=== PATIENT | female | born 1990 | race African-American/Black ===

== ENCOUNTER 2024-09-22 21:32 | Emergency (ER) | payer SELFPAY ==
[~2024-09-22] VITALS: Ht 162.6 cm; Wt 120.7 kg
[2024-09-22 21:34] VITALS: TEMP 98.4
[2024-09-22] MEDS: METHYLPREDNISOLONE SOD SUCC 125 MG/2ML VIAL IV STA (21:57)
[2024-09-22] MEDS: KETOROLAC TROMETHAMINE 30 MG/ML VIAL IV STA (22:14)
[2024-09-22 22:15] LABS: BASOPHILS % 0.3 % (0.0-1.0); EOSINOPHILS # (AUTO) 0.3 (0.0-0.4); EOSINOPHILS % 2.1 % (0.0-6.0); HEMATOCRIT 33.7 % (34.2-44.1); HEMOGLOBIN 9.7 g/dL (12.0-16.0); LYMPHOCYTES # (AUTO) 2.5 (1.0-3.2); LYMPHOCYTES % 21.2 % (18.0-39.1); MEAN CORPUSCULAR HEMOGLOBIN 21.7 pg (28-32); MEAN CORPUSCULAR HGB CONC 28.8 g/dL (31-35); MEAN CORPUSCULAR VOLUME 75.4 fL (81-99); MONOCYTES # (AUTO) 0.7 (0.2-0.8); MONOCYTES % 6.3 % (4.4-11.3); NEUTROPHILS # (AUTO) 8.2 (2.1-6.9); NEUTROPHILS % 69.6 % (38.7-80.0); PLATELET COUNT 450 x10e3/uL (140-360); RED BLOOD COUNT 4.47 x10e6/uL (3.6-5.1); RED CELL DISTRIBUTION WIDTH 16.5 % (11.7-14.4); WHITE BLOOD COUNT 11.79 x10e3/uL (4.8-10.8)
[2024-09-22 22:28] LABS: ALBUMIN 2.9 g/dL (3.5-5.0); ALBUMIN/GLOBULIN RATIO 0.6 (0.8-2.0); ALKALINE PHOSPHATASE 140 IU/L (40-150); BILIRUBIN,TOTAL 0.1 mg/dL (0.2-1.2); BLOOD UREA NITROGEN 7 mg/dL (7-26); BUN/CREATININE RATIO 10 (6-25); CALCIUM 11.3 mg/dL (8.4-10.2); CARBON DIOXIDE 19 mmol/L (22-29); CHLORIDE 113 mmol/L (98-107); CREATININE, SERUM 0.68 mg/dL (0.57-1.11); EST GLOMERULAR FILTRATION RATE 117 ML/MIN (>=60); GLUCOSE 97 mg/dL (74-118); SODIUM 139 mmol/L (136-145); TOTAL PROTEIN 7.5 g/dL (6.5-8.1)
[2024-09-22 22:36] LABS: ALANINE AMINOTRANSFERASE < 6 IU/L (0-55)
[2024-09-23 00:20] VITALS: PULSE 80; RESP 20
[2024-09-23] MEDS ORDERED: PREDNISONE20 MG PO (01:15)
[2024-09-23] MEDS ORDERED: KETOROLAC TROME10 MG PO (01:16)
[2024-09-23 01:37] VITALS: BP 132/74; PULSE 78; RESP 18; O2SAT 97
[2024-09-23] MEDS: KETOROLAC TROMETHAMINE 30 MG/ML VIAL IV STA (01:50)
[2024-09-23 03:36] LABS: HYPOCHROMASIA MODERATE
[2024-09-23 03:37] LABS: ANISOCYTOSIS MODERATE; ELLIPTOCYTE, RBC SLIGHT; MICROCYTOSIS MODERATE; POIKILOCYTOSIS SLIGHT; STOMATOCYTES MODERATE
[2024-09-23 03:38] LABS: PLATELET ESTIMATE ADEQUATE; PLATELET MORPHOLOGY COMMENT NORMAL; RBC MORPHOLOGY COMMENT ABNORMAL
== END 2024-09-23 02:00 | disposition home or self-care (01) ==
LOC: EDBD 21:41 → ER 21:41
DX: M25.562 Pain in left knee (principal); M25.561 Pain in right knee; M25.552 Pain in left hip; M25.551 Pain in right hip; M06.9 Rheumatoid arthritis, unspecified; E66.9 Obesity, unspecified; F17.210 Nicotine dependence, cigarettes, uncomplicated
CPT/HCPCS: 36415; 73700 ×2; 80053; 84702; 85025; 99285; J1885; J2919

== ENCOUNTER 2024-10-15 18:51 | Emergency (ER) | payer MEDICAID ==
[~2024-10-15] VITALS: Ht 162.6 cm; Wt 120.7 kg
[~2024-10-15 18:51] MED LIST: KETOROLAC TROME10 MG PO; PREDNISONE20 MG PO
[2024-10-15 18:55] VITALS: PULSE 74; RESP 18; TEMP 99.1; O2SAT 98
[2024-10-15] MEDS: KETOROLAC TROMETHAMINE 60 MG/2 ML VIAL IM ONE (19:46)
[2024-10-15] MEDS ORDERED: MEDROL4 M2 PO (19:47)
[2024-10-15] MEDS: METHYLPREDNISOLONE SOD SUCC 125 MG/2ML VIAL IM ONE (19:52)
== END 2024-10-15 21:05 | disposition home or self-care (01) ==
LOC: ER 19:34
DX: M17.0 Bilateral primary osteoarthritis of knee (principal); M25.562 Pain in left knee; M25.561 Pain in right knee
CPT/HCPCS: 99283; J1885; J2919

== ENCOUNTER 2024-11-02 12:29 | Emergency (ER) | payer BC, MEDICARE ==
[~2024-11-02] VITALS: Ht 162.6 cm; Wt 120.7 kg
[~2024-11-02 12:29] MED LIST changes: +MEDROL4 M2 PO
[2024-11-02 13:05] VITALS: PULSE 78; RESP 20; TEMP 98.9
[2024-11-02 14:52] LABS: LEUKOCYTE ESTERASE ,URINE TRACE (NEGATIVE); PREGNANCY TEST, URINE NEGATIVE (NEGATIVE); PROTEIN,URINE DIPSTICK NEGATIVE (NEGATIVE); URINE UROBILINOGEN 0.2 mg/dL (0.2 - 1)
[2024-11-02 15:02] LABS: EPITHELIAL CELLS,URINE RARE /LPF; WBC,URINE (MAN) 0-5 /HPF (0-5)
[2024-11-02] MEDS: SODIUM CHLORIDE 0.9% 1000ML 1,000 ML IV STA (16:17)
[2024-11-02] MEDS: ONDANSETRON HCL INJ 2MG/ML 2ML 2 MG/ML VIAL IV STA (16:17)
[2024-11-02] MEDS: KETOROLAC TROMETHAMINE 30 MG/ML VIAL IV STA (16:21)
[2024-11-02 16:37] LABS: BASOPHILS % 0.2 % (0.0-1.0); EOSINOPHILS % 1.7 % (0.0-6.0); LYMPHOCYTES % 21.1 % (18.0-39.1); MONOCYTES % 6.1 % (4.4-11.3); NEUTROPHILS % 70.8 % (38.7-80.0); RED CELL DISTRIBUTION WIDTH 18.0 % (11.7-14.4)
[2024-11-02 17:25] LABS: EST GLOMERULAR FILTRATION RATE 119.0 ML/MIN (>=60)
[2024-11-02] MEDS ORDERED: METHOCARBAMOL500 MG PO (18:08)
[2024-11-02] MEDS ORDERED: CEFDINIR300 MG PO (18:08)
[2024-11-02] MEDS ORDERED: MEDROL4 M2 PO (18:08)
[2024-11-02] MEDS ORDERED: KETOROLAC TROME10 MG PO (18:08)
[2024-11-02 18:58] VITALS: BP 148/70; PULSE 85; RESP 16; TEMP 98.1; O2SAT 97
== END 2024-11-02 19:02 | disposition home or self-care (01) ==
LOC: ER 13:50
DX: M54.41 Lumbago with sciatica, right side (principal); R30.0 Dysuria; N39.0 Urinary tract infection, site not specified; M06.9 Rheumatoid arthritis, unspecified; J45.909 Unspecified asthma, uncomplicated
CPT/HCPCS: 36415; 74176; 80053; 81001; 81025; 85025; 87086; 87186; 99284; J0696; J1885; J2405; J7030